=== PATIENT | male | born 1950 | race Caucasian/White ===

== ENCOUNTER → 2024-10-30 | Outpatient (CLI) | payer MEDICARE | LOC: M SOG 10:18 | PROVIDERS: ATTEND Physician Assistant | DX: M25.552 Pain in left hip (principal) ==

== ENCOUNTER 2025-02-20 13:14 | Outpatient (RCR) | payer MEDICARE ==
[~2025-02-20 13:14] MED LIST: AMLO-325 PO; CIPR7.5D2; ECOT81TA5 PO; ICOS1CAP; MELO15TA28; METF500T13 PO; ONDA-282 PO; ROSU10TA61; TRES1INJ; VICT18IN2
[2025-02-25] MEDS ORDERED: LACT20EL PO (10:20)
== END 2025-03-12 ==
LOC: M ONCR 13:14
PROVIDERS: ATTEND General Practice
DX: Z51.0 Encounter for antineoplastic radiation therapy (principal); C61 Malignant neoplasm of prostate

== ENCOUNTER → 2025-05-21 | Outpatient (CLI) | payer MEDICARE ==
[~2025-05-21] MED LIST changes: +LACT20EL PO
== END ==
LOC: M ONCR 09:29
PROVIDERS: ATTEND General Practice
DX: C61 Malignant neoplasm of prostate (principal); Z90.79 Acquired absence of other genital organ(s); Z92.3 Personal history of irradiation; Z88.5 Allergy status to narcotic agent; Z79.1 Long term (current) use of non-steroidal anti-inflammatories (NSAID); Z79.82 Long term (current) use of aspirin; Z79.4 Long term (current) use of insulin; Z79.84 Long term (current) use of oral hypoglycemic drugs; Z79.899 Other long term (current) drug therapy